=== PATIENT | male | born 1950 | race Caucasian/White ===

== ENCOUNTER 2019-08-29 13:01 | Inpatient (IN) | payer BC, MEDICARE ==
[2019-08-29] MEDS ORDERED: Lidocaine 1% (PF) 30 ML VIAL ONE (13:09)
[2019-08-29] MEDS ORDERED: Heparin 10,000 UNITS/1 ML VIAL ONE (13:09)
[2019-08-29] MEDS ORDERED: Nitroglycerin 2% Ointment 1 INCH/1 GM Packet ONE (13:10)
[2019-08-29 13:34] LABS: #Eosinphils 0.1 thou/uL (0.0-0.7); #Lymphocytes 1.1 thou/uL (1.20-3.40); #Monocytes 0.4 thou/uL (0.11-0.59); %Basophils 0.2 % (0.0-1.0); %Lymphocytes 24.8 % (21.0-51.0); %Monocytes 7.6 % (0.0-10.0); %Neutrophils 64.3 % (42.0-75.0); Hemoglobin 15.4 g/dL (14.0-18.0); Mean Corpuscular HGB CONC 34.9 g/dL (32.0-36.0); Mean Corpuscular Hemoglobin 31.1 pg (27.0-31.0); Mean Corpuscular Volume 89.1 fL (78.0-98.0); Mean Platelet Volume 7.3 fL (7.4-10.4); Platelet Count 65 thou/uL (130-400); RBC Distribution Width 12.4 % (11.5-14.5); Red Blood Cell (RBC) Count 4.94 mill/uL (4.70-6.10); White Blood Cell (WBC) Count 4.6 thou/uL (4.8-10.8)
[2019-08-29] MEDS ORDERED: Midazolam HCl 2 mg/2 ml Vial ONE ×2 (13:34→14:13)
[2019-08-29] MEDS ORDERED: Fentanyl 100 MCG/2 ML VIAL ONE ×2 (13:34→14:13)
[2019-08-29 13:36] LABS: INR-International Normal Ratio 1.3; PTT 29.8 SEC (22.9-36.1); Prothrombin Time 16.1 SEC (12.0-14.7)
[2019-08-29 13:41] LABS: Platelet Morphology Comment Appears Decreased; RBC Morphology Normal
[2019-08-29] MEDS ORDERED: Papaverine 60 MG/2 ML VIAL ONE (13:48)
[2019-08-29] MEDS ORDERED: Magnesium 5 GM/10 ML VIAL ONE (13:48)
[2019-08-29] MEDS ORDERED: Sodium Bicarb 50 MEQ/50 ML VIAL ONE (13:48)
[2019-08-29] MEDS ORDERED: Calcium Chloride 1 GM/10 ML Abboject SYRINGE ONE (13:48)
[2019-08-29] MEDS ORDERED: Heparin 30,000 units/30 ml VIAL ONE (13:48)
[2019-08-29] MEDS ORDERED: Cardioplegic Soln 1,000 ML BAG ONE (13:48)
[2019-08-29] MEDS ORDERED: Thrombin 5000 UNITS/5 ML VIAL ONE (13:48)
[2019-08-29] MEDS ORDERED: Heparin 5,000 UNITS/ML VIAL ONE (13:48)
[2019-08-29] MEDS ORDERED: Potassium Chloride 60 MEQ/30 ML VIAL ONE (13:48)
[2019-08-29] MEDS ORDERED: Nitroglycerin 50 MG/250 ML BOT ONE (13:48)
[2019-08-29] MEDS ORDERED: Lidocaine 2% PF 5 ML VIAL ONE (13:48)
[2019-08-29] MEDS ORDERED: Aminocaproic Acid 5 GM/20 ML VIAL ONE (13:48)
[2019-08-29] MEDS ORDERED: Mannitol 12.5 GM/50 ML ONE (13:48)
[2019-08-29] MEDS ORDERED: Protamine Sulfate 250 MG/25 ML VIAL ONE (13:48)
[2019-08-29] MEDS ORDERED: ePHEDrine 50 MG/ML VIAL ONE (13:50)
[2019-08-29] MEDS ORDERED: PHENYLEPHRINE-NS 100 MCG/ML 10 ML SYRINGE ONE ×2 (13:50→16:14)
[2019-08-29] MEDS ORDERED: Succinylcholine Chloride 20 MG/ML 10 ml SYRINGE FS ONE (13:50)
[2019-08-29] MEDS ORDERED: Vecuronium 10 MG VIAL ONE ×2 (13:50→14:13)
[2019-08-29] MEDS ORDERED: PROPOFOL 200 MG/20 ML VIAL ONE (13:50)
[2019-08-29] MEDS ORDERED: Heparin 25,000 units/D5W 500 ML ONE (13:56)
[2019-08-29 13:58] LABS: ALT (SGPT) 38 U/L (8-55); AST (SGOT) 36 U/L (5-34); Albumin 4.4 g/dL (3.4-4.8); Alkaline Phosphatase 83 U/L (40-110); Anion Gap 15 mmol/L (10-20); BUN (Urea Nitrogen) 18 mg/dL (8.4-25.7); Bilirubin, Total 0.6 mg/dL (0.2-1.2); CK (CPK) 45 U/L (30-200); Calc. Creatinine Clearance 0 mL/min (70-130); Calcium 9.1 mg/dL (7.8-10.44); Carbon Dioxide 20 mmol/L (23-31); Chloride 106 mmol/L (98-107); Estimated GFR-MDRD 84; Globulin 2.4 g/dL (2.4-3.5); Glucose 163 mg/dL (83-110); Potassium 4.3 mmol/L (3.5-5.1); Protein, Total 6.8 g/dL (5.8-8.1); Sodium 137 mmol/L (136-145)
[2019-08-29] MEDS ORDERED: Albumin 5% 500 ML ONE (14:00)
[2019-08-29] MEDS ORDERED: Midazolam HCl 5 mg/5 ml Vial ONE (14:13)
[2019-08-29] MEDS ORDERED: Dexmedetomidine 200 MCG/2 ML VIAL ONE (14:13)
[2019-08-29 14:23] LABS: CKMB 3.6 ng/mL (0-6.6)
[2019-08-29] MEDS ORDERED: Heparin 10,000 UNITS/1 ML VIAL 30,000 UNITS in Sodium Chloride 0.9% 1,000 ML FS SCH (14:30)
[2019-08-29 14:53] LABS: Cardiac Risk 8.8 (Less than 4.5)
[2019-08-29] MEDS ORDERED: Bupivacaine HCl 0.5%/Epinephrine 1:200,000/PF 30 ml Vial ONE (16:25)
[2019-08-29] MEDS ORDERED: Dexamethasone 4 mg/ml Vial ONE (16:25)
[2019-08-29] MEDS ORDERED: Bisacodyl 5 MG TAB PO PRN (18:26)
[2019-08-29] MEDS ORDERED: Acetaminophen 325 MG TAB PO PRN (18:26)
[2019-08-29] MEDS ORDERED: Guaifenesin DM 100-10/5 ML UDCUP PO PRN (18:26)
[2019-08-29] MEDS ORDERED: hydrALAZINE 20 MG/ML VIAL SLOW IVP PRN (18:26)
[2019-08-29] MEDS ORDERED: Norepinephrine 8 MG/0.9% NS 250 ML IVPB PRN (18:26)
[2019-08-29] MEDS ORDERED: Fentanyl 100 MCG/2 ML VIAL SLOW IVP PRN ×2 (18:26)
[2019-08-29] MEDS ORDERED: Morphine 2 MG/ML SYRINGE SLOW IVP PRN ×2 (18:26→21:48)
[2019-08-29] MEDS ORDERED: Promethazine HCl 25 MG/ML VIAL IM PRN (18:26)
[2019-08-29] MEDS ORDERED: Mag-Al 1200 mg/1200 mg/30 ML UDCUP PO PRN (18:26)
[2019-08-29] MEDS ORDERED: Bisacodyl 10 MG SUPP PR PRN (18:26)
[2019-08-29] MEDS ORDERED: Ondansetron PF 4 MG/2 ML Vial IVP PRN (18:26)
[2019-08-29] MEDS ORDERED: traMADol HCl 50 MG TAB PO PRN (18:26)
[2019-08-29] MEDS ORDERED: Hetastarch 6% 500 ML 500 ML IVPB PRN (18:26)
[2019-08-29] MEDS ORDERED: Nitroglycerin 50 MG/250 ML BOT 250 ML IVPB PRN (18:26)
[2019-08-29] MEDS ORDERED: DOPamine 400 MG/D5W 250 ML 250 ML ONE (18:27)
[2019-08-29 18:33] LABS: #Eosinphils 0.1 thou/uL (0.0-0.7); #Lymphocytes 0.9 thou/uL (1.20-3.40); #Monocytes 0.5 thou/uL (0.11-0.59); #Neutrophils 6.4 thou/uL (1.40-6.50); %Basophils 0.5 % (0.0-1.0); %Eosinophils 0.8 % (0.0-10.0); %Lymphocytes 11.9 % (21.0-51.0); %Monocytes 6.2 % (0.0-10.0); %Neutrophils 80.7 % (42.0-75.0); Hemoglobin 13.6 g/dL (14.0-18.0); Mean Corpuscular HGB CONC 34.6 g/dL (32.0-36.0); Mean Corpuscular Hemoglobin 31.2 pg (27.0-31.0); Mean Platelet Volume 7.1 fL (7.4-10.4); Platelet Count 122 thou/uL (130-400); RBC Distribution Width 12.3 % (11.5-14.5); Red Blood Cell (RBC) Count 4.36 mill/uL (4.70-6.10)
--- NOTE | 2019-08-29 18:34 | RAD ---
EXAM: Single view of the chest HISTORY: Status post open heart surgery COMPARISON: None FINDINGS: Single view of the chest shows a normal sized cardiomediastinal silhouette. The patient is status post sternotomy. There is an endotracheal tube at the upper border of the clavicles. A left subclavian central venous catheter seen with its tip in the superior vena cava. No pneumothorax is se en. There is no evidence of consolidation, mass, or pleural effusion. The bones are unremarkable. IMPRESSION: No evidence of acute cardiopulmonary disease
[2019-08-29 18:38] LABS: INR-International Normal Ratio 1.4; PTT 35.6 SEC (22.9-36.1); Prothrombin Time 17.1 SEC (12.0-14.7)
[2019-08-29 18:56] LABS: Anion Gap 14 mmol/L (10-20); BUN (Urea Nitrogen) 14 mg/dL (8.4-25.7); Calc. Creatinine Clearance 113 mL/min (70-130); Calcium 7.3 mg/dL (7.8-10.44); Carbon Dioxide 18 mmol/L (23-31); Chloride 110 mmol/L (98-107); Estimated GFR-MDRD Greater than 90; Glucose 204 mg/dL (83-110); Potassium 4.6 mmol/L (3.5-5.1); Sodium 137 mmol/L (136-145)
[2019-08-29] MEDS ORDERED: Dextrose 50% Abboject 50 ML SYRINGE SLOW IVP PRN (19:04)
[2019-08-29] MEDS ORDERED: Insulin Regular 300 UNITS/3 ML VIAL SC PRN (19:04)
[2019-08-29] MEDS ORDERED: HUMULIN R 100 UNITS in Sodium Chloride 0.9% 100 ML IVPB SCH (19:04)
[2019-08-29] MEDS ORDERED: Dextrose 5% in Water 1,000 ML IV PRN (19:04)
[2019-08-29] MEDS: D5 1/2 NS w/20 mEq KCL 1,000 ML IV SCH ×2 (19:06→19:22)
[2019-08-29] MEDS: Ketorolac Tromethamine 30 MG/ML VIAL IVP SCH (20:01)
[2019-08-29] MEDS ORDERED: Iopamidol 370 76% 50 ML VIAL FS ONE (20:20)
[2019-08-29] MEDS ORDERED: Iopamidol 370 76% 100 ML VIAL ONE (20:20)
--- NOTE | 2019-08-29 20:50 | HP ---
HISTORY OF PRESENT ILLNESS: Tanner Tompkins is a 69-year-old white male, who denies any previous cardiac problems. Today, he had his first episode of chest discomfort, which was in the lower sternal/epigastric area, which was intense pressure. He denied any shortness of breath, nausea, vomiting, or diaphoresis. Ultimately, his called paramedics. Initial EKG showed a [address]-segment elevation in lead III, 1 mm in lead F. There are Q waves in III and F. There are also reciprocal changes in 1L and V3. He was given 4 chewable aspirins and on transfer here, his pain improved and currently just as Q waves inferiorly and the ST segments have appeared to return to normal and all of the reciprocal changes have resolved. PAST MEDICAL HISTORY: He denies any history of hypertension, diabetes, or hypercholesterolemia. MEDICATIONS: Flomax 0.4 daily. ALLERGIES: NONE. PAST SURGICAL HISTORY: Left ptowx-[id number]-wbxw amputation. When he was a child, his foot got caught in a screw auger. He has had right clavicular surgery and a partial splenectomy. SOCIAL HISTORY: He stopped smoking in his teenage years. Rarely drinks. FAMILY HISTORY: Negative for coronary artery disease. REVIEW OF SYSTEMS: Unremarkable. PHYSICAL EXAMINATION: VITAL SIGNS: Blood pressure 120/80, pulse of 90. HEENT: PERRL. Bilateral ear creases. CHEST: Clear. CARDIAC: S1 and S2 normal without any S3, S4, or murmurs. Carotid upstrokes normal without bruits. ABDOMEN: Normal bowel sounds without tenderness or organomegaly. EXTREMITIES: Reveal no clubbing, cyanosis, or edema. NEUROLOGIC: Grossly intact. SKIN: Warm and dry. LABORATORY DATA: EKG findings as noted above. Hemoglobin 15.4, hematocrit 44.1 , white count 4600, platelets 65,000. Sodium 137, potassium 4.3, chloride 106, carbon dioxide 20, BUN 18, creatinine 0.89, AST 36, ALT 38. I do not see a troponin I back as of yet. IMPRESSION: 1. Inferior ST elevation myocardial infarction, but with previous Q waves inferiorly. His ST-segment elevation and reciprocal changes have resolved. 2. Prostatic hypertrophy. 3. Distant smoker. 4. Partial splenectomy. 5. Thrombocytopenia, question related to splenic problems. 6. Left lnlwp-hle-ysof amputation from accident as a child. PLAN: Situation discussed with the patient. It is recommended he undergo cardiac catheterization. Risks were discussed including , myocardial infarction, dye reaction, vascular injury, CVA, transfusion, renal loss, limb loss, etc. Risks of stent placement discussed including , myocardial infarction, emergent CABG, restenosis, stent thrombosis, vessel perforation, etc. He has no upcoming surgeries and has never had gastrointestinal bleeding and a drug-eluting stent will be placed if needed. Job ID: [id number] MTDD
--- NOTE | 2019-08-29 21:06 | CON ---
DATE OF CONSULTATION: HISTORY OF PRESENT ILLNESS: Mr. Tompkins was brought into the emergency department today by EMS. He began having chest pain, arm pain, shortness of breath, and a feeling of impending doom. He was brought in and found to have had a troponin of 0.03. EKG showed normal sinus rhythm with no ST-segment abnormalities. He was seen by Dr. Payne and taken to the laboratory supervisor. He was found to have critical left main stenosis with thrombus. His LAD has multifocal disease throughout its length. There is no bypassable target in the LAD or diagonal system. The circumflex arteries have multifocal disease throughout. There are 2 bypassable OMs. His right coronary is completely occluded. There is a right target that . Currently, the patient is in the recovery area surrounded by family. The family says that he has Alzheimer's that has been worsening, but they wish for everything to be done for him. He is status post left BKA and ambulates some with a prosthetic limb. He has had declining activity levels recently. Ejection fraction on ventriculogram is 70% plus. PAST MEDICAL HISTORY: 1. Alzheimer disease. 2. Peripheral vascular disease, status post left below-knee amputation. 3. History of TIA-the patient had carotid ultrasounds performed when this happened and has, according to the , 47% right carotid stenosis. PAST SURGICAL HISTORY: 1. Left BKA. 2. Colon resection. 3. Laparotomy for small bowel resection secondary to adhesions. CURRENT MEDICATIONS: Noted. ALLERGIES: NONE. SOCIAL HISTORY: He does not use tobacco. REVIEW OF SYSTEMS: Not performed due to the acuity of situation. PHYSICAL EXAMINATION: VITAL SIGNS: His heart rate is 70, regular. Blood pressure is 140/72. LUNGS: Clear bilaterally. HEART: Rhythm is regular. ABDOMEN: Soft and nontender. EXTREMITIES: He has a below-knee amputation on the left. His right lower extremity has no edema. ASSESSMENT AND PLAN: This is an unfortunate situation. He really does not have good bypassable targets anywhere. He does not have a bypassable LAD or diagonal target. His circumflex and right coronary arteries may have some targets there. I discussed the severity of the situation with the family and they wish for everything to be done. The positive aspect of this situation is that his ventricle continues to function at a high level. We will be taking him acutely for coronary artery bypass grafting. The patient's family has been counseled. Job ID: [id number]
[2019-08-29] MEDS ORDERED: Lorazepam 2 MG/ML VIAL SLOW IVP PRN (21:48)
[2019-08-29] MEDS ORDERED: fentaNYL Citrate/PF 2,000 MCG in Sodium Chloride 0.9% 60 ML IV SCH (21:48)
[2019-08-29] MEDS ORDERED: Propofol BOLUS 1,000 MG/100 ML VIAL IV PRN (21:48)
[2019-08-29] MEDS ORDERED: DISCONTINUE PREVIOUS NARCOTIC PAIN MEDICATIONS AND BENZODIAZEPINES FS SCH (21:48)
[2019-08-29] MEDS ORDERED: Propofol 1,000 MG/100 ML VIAL IV PRN (21:48)
[2019-08-29] MEDS ORDERED: Fentanyl BOLUS 250 ML IVPB PRN (21:48)
[2019-08-29] MEDS ORDERED: Norepinephrine 8 MG in Dextrose 5% in Water 242 ML IVPB PRN (22:15)
[2019-08-29] MEDS: Famotidine/PF 20 mg/2ml Vial SLOW IVP SCH (22:25)
[2019-08-29] MEDS: CEFAZOLIN 2 GM in Premix Bag 1 BAG IVPB SCH (22:25)
[2019-08-29 23:47] LABS: Hemoglobin 14.9 g/dL (14.0-18.0)
[2019-08-30 00:06] LABS: Potassium 4.2 mmol/L (3.5-5.1)
[2019-08-30 00:29] LABS: Actual Bicarbonate (HCO3a) 19.6 mEq/L (22-28); Base Excess (BEa) -7.5 mEq/L (-2.0 to +3.0); CO2 Tension 45.3 mmHg (35.0-45.0); Calcium, Ionized 1.08 mmol/L (1.12-1.30); Carboxyhemoglobin (COHb) 0.9 gm% (0.0-3.0); Hemoglobin (Hb) 15.1 g/dL (14.0-18.0); Potassium - ABG Lab 4.46 mmol/L (3.70-5.30); pH, Arterial 7.25 (7.35-7.45)
[2019-08-30 00:30] LABS: ALV-art Gradient 503.075 (0-20); Puncture Site ALINE
--- NOTE | 2019-08-30 00:30 | OP ---
DATE OF PROCEDURE: 08/29/2019 PREOPERATIVE DIAGNOSIS: Coronary artery disease/myocardial infarction/hypertension/Alzheimer disease. POSTOPERATIVE DIAGNOSIS: Coronary artery disease/myocardial infarction/hypertension/Alzheimer disease. PROCEDURE PERFORMED: Emergency coronary artery bypass grafting x3 1. Reverse saphenous vein to diffusely diseased heavily calcified OM1. 2. Reverse saphenous vein to diffusely disease heavily calcified OM2. 3. Reverse saphenous vein to diffusely diseased heavily calcified posterolateral branch. Note, none of these targets should be redone. He has no bypassable anterior targets. CO-SURGEON: Basil Terrell MD ANESTHESIA: General endotracheal- Dr. Jose Alberto Martinez and Dr. Tiago Alejandro. PUMP TIME: 62 minutes. CROSS-CLAMP TIME: 34 minutes. LOW CORE TEMPERATURE: 34 degrees Celsius. COMPOSITE ENGINEER: Steve Roberto. DRAINS: 24-Frisian chest tubes x2. DRIPS: None. TRANSFUSIONS: None. DESCRIPTION OF PROCEDURE: After consent was obtained, the patient was brought to the operating room, placed in supine position on the operating table. Appropriate central line was placed and general endotracheal anesthesia was induced. Chest and legs were prepped and draped in usual sterile fashion. The greater saphenous vein was harvested from the right lower extremity utilizing an endoscopic technique. Wound was irrigated and closed in layers. A median sternotomy was performed. Thymic fat and pericardium were divided with electrocautery. Pericardial stay sutures were placed. The patient was systemically heparinized. Aortic and atrial cannulations were performed. After adequate heparinization, retrograde problem was performed. The patient was placed on cardiopulmonary bypass. Distal targets were marked. Aortic cross-clamp was applied and antegrade sanguineous cardioplegic arrest was obtained. 1 L of antegrade cold [place] cardioplegia was given. Topical cold solution was used. Reverse saphenous vein was anastomosed to the posterolateral branch in an end-to side fashion with running 7-0 Prolene suture. This was a less than 1 mm vessel and poor in quality. The anastomosis was tested and was hemostatic. Reverse saphenous vein was anastomosed to the OM2 in an end-to-side fashion with running 7-0 Prolene suture. This was an approximately 1.5 mm vessel and poor in quality. Anastomosis was tested and was hemostatic. Reverse saphenous vein was anastomosed to the OM1 in an end-to-side fashion with running 7-0 Prolene suture. This was an approximately 1.5 mm vessel and poor in quality. Anastomosis was tested and was hemostatic. Cross-clamp was removed and partial occluding clamp placed. Saphenous veins to OM2 and posterolateral branch were anastomosed to the aortic punch sites. Partial occluding clamp was removed and graft was deaired. Saphenous vein of the OM1 was anastomosed to the side wall of the OM2 graft. Anastomoses were inspected for hemostasis, which was good. The patient was warmed and weaned from cardiopulmonary bypass. After resumption of sinus rhythm, good hemodynamics, temperature greater than 36.5, bypass was discontinued. Transfusions were given. Protamine was administered. Decannulation was performed and pursestring suture secured. A 24-Frisian chest tubes x2 were placed in the mediastinum. After adequate hemostasis had been obtained, sternum was treated with vancomycin paste and closed with #7 wire. Sternum was treated with platelet-rich plasma and the wire was twisted. Wounds were irrigated and treated with platelet-poor plasma, closed in multiple layers. Needle, sponge, and instrument counts were all reported as correct at the end of the procedure. The patient tolerated the procedure well, was transferred to the intensive care unit in stable, but critical condition. Job ID: [id number]
[2019-08-30] MEDS: Ketorolac Tromethamine 30 MG/ML VIAL IVP SCH ×4 (02:05→19:56)
[2019-08-30 04:17] LABS: #Lymphocytes 0.5 thou/uL (1.20-3.40); #Monocytes 0.8 thou/uL (0.11-0.59); #Neutrophils 10.3 thou/uL (1.40-6.50); %Basophils 0.1 % (0.0-1.0); %Eosinophils 0.2 % (0.0-10.0); %Lymphocytes 4.5 % (21.0-51.0); %Monocytes 6.9 % (0.0-10.0); %Neutrophils 88.3 % (42.0-75.0); Hemoglobin 13.6 g/dL (14.0-18.0); Mean Corpuscular HGB CONC 34.5 g/dL (32.0-36.0); Mean Corpuscular Hemoglobin 30.9 pg (27.0-31.0); Mean Corpuscular Volume 89.5 fL (78.0-98.0); Mean Platelet Volume 6.9 fL (7.4-10.4); Platelet Count 176 thou/uL (130-400); RBC Distribution Width 12.5 % (11.5-14.5); White Blood Cell (WBC) Count 11.7 thou/uL (4.8-10.8)
[2019-08-30 04:36] LABS: Anion Gap 13 mmol/L (10-20); BUN (Urea Nitrogen) 14 mg/dL (8.4-25.7); Calc. Creatinine Clearance 116 mL/min (70-130); Calcium 7.9 mg/dL (7.8-10.44); Carbon Dioxide 20 mmol/L (23-31); Chloride 111 mmol/L (98-107); Estimated GFR-MDRD Greater than 90; Glucose 119 mg/dL (83-110); Potassium 3.8 mmol/L (3.5-5.1); Sodium 140 mmol/L (136-145)
[2019-08-30] MEDS: CEFAZOLIN 2 GM in Premix Bag 1 BAG IVPB SCH ×2 (05:33→13:25)
[2019-08-30] MEDS: Potassium Chloride 20 MEQ/100 ML PREMIX BAG IVPB PRN (05:34)
[2019-08-30 07:17] LABS: Actual Bicarbonate (HCO3a) 17.9 mEq/L (22-28); Base Excess (BEa) -6.1 mEq/L (-2.0 to +3.0); CO2 Tension 30.8 mmHg (35.0-45.0); Calcium, Ionized 1.12 mmol/L (1.12-1.30); Hemoglobin (Hb) 13.4 g/dL (14.0-18.0); O2 Tension (PaO2) 91.7 mmHg (> 70.0); Potassium - ABG Lab 4.34 mmol/L (3.70-5.30); pH, Arterial 7.38 (7.35-7.45)
[2019-08-30 07:26] LABS: Puncture Site ALINE
[2019-08-30] MEDS ORDERED: Fentanyl 100 MCG/2 ML VIAL SLOW IVP PRN ×2 (08:01)
[2019-08-30] MEDS ORDERED: FLU VACC TS2019-20(65YR UP)/PF 180 MCG/0.5 ML SYRINGE IM ONE (09:00)
--- NOTE | 2019-08-30 09:54 | CON ---
DATE OF CONSULTATION: HISTORY OF PRESENT ILLNESS: A 69-year-old gentleman who is status post coronary artery bypass grafting. He was just extubated this morning. He was admitted yesterday with ongoing chest pain, epigastric, shortness of breath, nausea, vomiting, and diaphoresis. EKG showed ST-segment elevation in inferior leads. He was given apparently aspirin. He was taken to the labor economics teacher, was found to have coronary artery disease, underwent bypass surgery last night. Postop, he was just extubated, doing well. He is a former smoker of 2 packs a day. His son is at the bedside. He says he has history of dementia. PREVIOUS SURGERIES: Recent CABG, previous left knee amputation, right clavicular surgery, and partial spleen removed. HOME MEDICATIONS: 1. Zoloft 100. 2. Seroquel 100. 3. . ALLERGIES: NONE. SOCIAL HISTORY AND FAMILY HISTORY: Unremarkable. Did construction work, sandblasting. PHYSICAL EXAMINATION: GENERAL: Awake, alert, and responsive, in no distress. VITAL SIGNS: Post extubation, sats 96% on room air, blood pressure . CHEST: No wheezing or crackles. CARDIAC: Normal S1, S2. No gallops. ABDOMEN: No masses. IMAGING STUDIES: X-ray shows no acute infiltrates. LABORATORY DATA: His lab otherwise shows his chemistry profile was normal. IMPRESSION: Status post emergency bypass surgery, former smoker, and dementia. PLAN: We will follow while in the ICU. Supportive care. PT. Job ID: [id number]
[2019-08-30] MEDS: Aspirin 325 MG TAB PO SCH (10:17)
[2019-08-30] MEDS: Famotidine/PF 20 mg/2ml Vial SLOW IVP SCH (10:18)
--- NOTE | 2019-08-30 10:38 | RAD ---
PORTABLE SUPINE CHEST: HISTORY: Postop sternotomy. CCU followup. COMPARISON: 08/29/2019. FINDINGS: ET tube remains in place. Central line unchanged. Postop sternotomy changes. Lungs appear well aerated and clear. No focal infiltrate or significant effusion. IMPRESSION: No acute lung process. POS: [facility]
[2019-08-30 15:04] LABS: Troponin I 5.075 ng/mL (< 0.028)
[2019-08-30] MEDS: D5 1/2 NS w/20 mEq KCL 1,000 ML IV SCH (20:02)
[2019-08-30] MEDS: Atorvastatin Calcium 40 MG TAB PO SCH (20:57)
[2019-08-30] MEDS: Famotidine 20 MG TAB PO SCH (20:57)
[2019-08-31] MEDS: Ketorolac Tromethamine 30 MG/ML VIAL IVP SCH ×4 (02:05→20:05)
[2019-08-31 04:16] LABS: #Lymphocytes 0.7 thou/uL (1.20-3.40); #Monocytes 0.6 thou/uL (0.11-0.59); #Neutrophils 6.8 thou/uL (1.40-6.50); %Eosinophils 0.2 % (0.0-10.0); %Lymphocytes 8.4 % (21.0-51.0); %Monocytes 7.7 % (0.0-10.0); %Neutrophils 83.7 % (42.0-75.0); Hemoglobin 11.7 g/dL (14.0-18.0); Mean Corpuscular HGB CONC 34.5 g/dL (32.0-36.0); Mean Corpuscular Hemoglobin 31.5 pg (27.0-31.0); Mean Corpuscular Volume 91.1 fL (78.0-98.0); Mean Platelet Volume 6.9 fL (7.4-10.4); Platelet Count 123 thou/uL (130-400); RBC Distribution Width 12.8 % (11.5-14.5); Red Blood Cell (RBC) Count 3.71 mill/uL (4.70-6.10); White Blood Cell (WBC) Count 8.2 thou/uL (4.8-10.8)
[2019-08-31 04:34] LABS: Anion Gap 10 mmol/L (10-20); BUN (Urea Nitrogen) 13 mg/dL (8.4-25.7); Calc. Creatinine Clearance 122 mL/min (70-130); Carbon Dioxide 23 mmol/L (23-31); Chloride 105 mmol/L (98-107); Estimated GFR-MDRD Greater than 90; Glucose 177 mg/dL (83-110); Sodium 134 mmol/L (136-145)
[2019-08-31] MEDS: Potassium Chloride 20 MEQ/100 ML PREMIX BAG IVPB PRN (06:01)
[2019-08-31] MEDS: Aspirin 325 MG TAB PO SCH (07:39)
[2019-08-31] MEDS: Famotidine 20 MG TAB PO SCH ×2 (07:40→20:04)
--- NOTE | 2019-08-31 09:42 | PRG ---
DATE OF SERVICE: 08/31/2019 SUBJECTIVE: This morning, he is awake, alert, and responsive. He is clearly demented. Denies any shortness of breath. OBJECTIVE: VITAL SIGNS: Sats are 96% on room air, temperature 98, blood pressure 95/64, and respiratory rate 18. CHEST: No wheezing or crackles. CARDIAC: Normal S1 and S2. No gallops. ABDOMEN: No masses. IMPRESSION: Status post emergency coronary artery bypass graft, carotid disease, dementia. X-ray shows no acute infiltrates. DISPOSITION: As per Cardiology. Transferred out to a monitored bed. Job ID: [id number]
--- NOTE | 2019-08-31 10:42 | RAD ---
PORTABLE CHEST: HISTORY: Postop sternotomy. COMPARISON: 08/30/2019. FINDINGS: Postop sternotomy change with mild cardiomegaly. The lung sifuentes appear aerated and clear of infiltr ate. Central line appears adequately positioned. ET tube has been removed. IMPRESSION: No acute interval change. POS: [facility]
[2019-08-31] MEDS: Atorvastatin Calcium 40 MG TAB PO SCH (20:04)
[2019-08-31] MEDS ORDERED: Amiodarone 150 MG, Admixture Fee 1 EACH in Dextrose 5% in Water 100 ML IVPB SCH (22:30)
[2019-08-31] MEDS: Amiodarone 450 MG, Admixture Fee 1 EACH in Dextrose 5% in Water 250 ML IVPB SCH (22:50)
[2019-09-01] MEDS: Ketorolac Tromethamine 30 MG/ML VIAL IVP SCH ×4 (01:28→20:16)
[2019-09-01 05:28] LABS: #Eosinphils 0.1 thou/uL (0.0-0.7); #Monocytes 0.5 thou/uL (0.11-0.59); %Eosinophils 1.3 % (0.0-10.0); %Lymphocytes 12.9 % (21.0-51.0); %Monocytes 6.3 % (0.0-10.0); %Neutrophils 79.5 % (42.0-75.0); Hemoglobin 11.4 g/dL (14.0-18.0); Mean Corpuscular HGB CONC 34.9 g/dL (32.0-36.0); Mean Corpuscular Hemoglobin 31.8 pg (27.0-31.0); Mean Corpuscular Volume 91.1 fL (78.0-98.0); Mean Platelet Volume 6.9 fL (7.4-10.4); Platelet Count 130 thou/uL (130-400); RBC Distribution Width 12.4 % (11.5-14.5); Red Blood Cell (RBC) Count 3.58 mill/uL (4.70-6.10); White Blood Cell (WBC) Count 7.5 thou/uL (4.8-10.8)
[2019-09-01 05:46] LABS: Anion Gap 10 mmol/L (10-20); BUN (Urea Nitrogen) 14 mg/dL (8.4-25.7); Calc. Creatinine Clearance 128 mL/min (70-130); Calcium 8.4 mg/dL (7.8-10.44); Carbon Dioxide 24 mmol/L (23-31); Chloride 103 mmol/L (98-107); Estimated GFR-MDRD Greater than 90; Glucose 161 mg/dL (83-110); Potassium 3.7 mmol/L (3.5-5.1); Sodium 133 mmol/L (136-145)
[2019-09-01] MEDS: Amiodarone 450 MG, Admixture Fee 1 EACH in Dextrose 5% in Water 250 ML IVPB SCH ×2 (05:57→22:04)
--- NOTE | 2019-09-01 09:25 | PRG ---
DATE OF SERVICE: 09/01/2019 SUBJECTIVE: This morning, he is awake, alert, and responsive. He is better post-CABG. OBJECTIVE: VITAL SIGNS: Blood pressure respirations 18. CHEST: Decreased breath sounds. No wheezing. CARDIAC: Normal S1 and S2. No gallops. ABDOMEN: No masses. ASSESSMENT AND PLAN: Coronary artery bypass grafting, dementia. The patient can be transferred out of the ICU later on today. Continue PT, supportive care. Job ID: [id number]
[2019-09-01] MEDS: Aspirin 325 MG TAB PO SCH (09:37)
[2019-09-01] MEDS: Famotidine 20 MG TAB PO SCH ×2 (09:37→20:18)
[2019-09-01] MEDS ORDERED: Mag-Al 1200 mg/1200 mg/30 ML UDCUP PO PRN (11:24)
[2019-09-01] MEDS ORDERED: Artificial Tears 18 DROP/0.9 ML EA EYE PRN (11:24)
[2019-09-01] MEDS ORDERED: Bisacodyl 10 MG SUPP PR PRN (11:24)
[2019-09-01] MEDS ORDERED: Mineral Oil ENEMA PR PRN (11:24)
[2019-09-01] MEDS ORDERED: Nitroglycerin 0.4 MG TAB (25 Tab Bottle) SL PRN (11:24)
[2019-09-01] MEDS ORDERED: Zolpidem Tartrate 5 MG TAB PO PRN (11:24)
[2019-09-01] MEDS ORDERED: Bisacodyl 5 MG TAB PO PRN (11:24)
[2019-09-01] MEDS ORDERED: Milk Of Magnesia 30 ML UDCUP PO PRN (11:24)
[2019-09-01] MEDS ORDERED: Guaifenesin DM 100-10/5 ML UDCUP PO PRN (11:24)
[2019-09-01 14:03] LABS: Actual Bicarbonate (HCO3a) 21.5 mEq/L (22-28); Analyzer IN Cardio OR; Base Excess (BEa) -4.8 mEq/L (-2.0 to +3.0); CO2 Tension 44.4 mmHg (35.0-45.0); Calcium, Ionized 1.09 mmol/L (1.12-1.30); Carboxyhemoglobin (COHb) 0.6 gm% (0.0-3.0); O2 Tension (PaO2) 65.8 mmHg (> 70.0); Potassium - ABG Lab 5.13 mmol/L (3.70-5.30)
[2019-09-01 14:03] LABS: Analyzer IN Cardio OR; Calcium, Ionized 1.12 mmol/L (1.12-1.30); Carboxyhemoglobin (COHb) 0.1 gm% (0.0-3.0); Hemoglobin (Hb) 11.4 g/dL (14.0-18.0); O2 Tension (PaO2) 67.3 mmHg (> 70.0); pH, Arterial 7.27 (7.35-7.45)
[2019-09-01 14:04] LABS: Actual Bicarbonate (HCO3v) 19 mEq/L (22-28); Analyzer IN Cardio OR; Base Excess -8.1 mEq/L (-2.0 to +3.0); Calcium, Ionized 1.01 mmol/L (1.16-1.32); Chloride (ABG LAB) 104 mmol/L (98-106); Hemoglobin (Hb) 10.7 g/dL (12.6-17.4); Potassium - ABG Lab 5.18 mmol/L (3.70-5.30); Sodium 135.9 mmol/L (133-146)
[2019-09-01 14:04] LABS: Actual Bicarbonate (HCO3a) 24.4 mEq/L (22-28); Analyzer IN Cardio OR; Base Excess (BEa) -2.1 mEq/L (-2.0 to +3.0); CO2 Tension 49.2 mmHg (35.0-45.0); Carboxyhemoglobin (COHb) 0.3 gm% (0.0-3.0); Hemoglobin (Hb) 10.9 g/dL (14.0-18.0); O2 Tension (PaO2) 422.7 mmHg (> 70.0); Potassium - ABG Lab 5.85 mmol/L (3.70-5.30); pH, Arterial 7.31 (7.35-7.45)
[2019-09-01 14:05] LABS: Actual Bicarbonate (HCO3a) 21.4 mEq/L (22-28); Analyzer IN Cardio OR; Base Excess (BEa) -6.1 mEq/L (-2.0 to +3.0); CO2 Tension 51.7 mmHg (35.0-45.0); Carboxyhemoglobin (COHb) 0.3 gm% (0.0-3.0); O2 Tension (PaO2) 454.4 mmHg (> 70.0); Potassium - ABG Lab 5.33 mmol/L (3.70-5.30)
[2019-09-01 14:06] LABS: Actual Bicarbonate (HCO3a) 20.2 mEq/L (22-28); Analyzer IN Cardio OR; Base Excess (BEa) -7.7 mEq/L (-2.0 to +3.0); CO2 Tension 50.6 mmHg (35.0-45.0); Calcium, Ionized 1.04 mmol/L (1.12-1.30); Carboxyhemoglobin (COHb) 0.4 gm% (0.0-3.0); Hemoglobin (Hb) 13.4 g/dL (14.0-18.0); Potassium - ABG Lab 4.64 mmol/L (3.70-5.30)
[2019-09-01 14:06] LABS: Actual Bicarbonate (HCO3a) 12.8 mEq/L (22-28); Analyzer IN Cardio OR; Base Excess (BEa) -14.1 mEq/L (-2.0 to +3.0); CO2 Tension 33.7 mmHg (35.0-45.0); Calcium, Ionized 0.54 mmol/L (1.12-1.30); Carboxyhemoglobin (COHb) 0.3 gm% (0.0-3.0); Hemoglobin (Hb) 9.6 g/dL (14.0-18.0); O2 Tension (PaO2) 234.3 mmHg (> 70.0); Potassium - ABG Lab 2.77 mmol/L (3.70-5.30)
[2019-09-01 14:07] LABS: Actual Bicarbonate (HCO3a) 20.8 mEq/L (22-28); Analyzer IN Cardio OR; Base Excess (BEa) -5.1 mEq/L (-2.0 to +3.0); CO2 Tension 41.9 mmHg (35.0-45.0); Calcium, Ionized 1.15 mmol/L (1.12-1.30); Carboxyhemoglobin (COHb) 0.8 gm% (0.0-3.0); Hemoglobin (Hb) 14.7 g/dL (14.0-18.0); O2 Tension (PaO2) 124.1 mmHg (> 70.0); Potassium - ABG Lab 4.41 mmol/L (3.70-5.30); pH, Arterial 7.31 (7.35-7.45)
[2019-09-01 14:10] LABS: Puncture Site ALINE
[2019-09-01 14:11] LABS: Puncture Site ALINE
[2019-09-01 14:12] LABS: Puncture Site ALINE; pH, Arterial 7.22 (7.35-7.45)
[2019-09-01 14:13] LABS: Puncture Site ALINE; pH, Arterial 7.24 (7.35-7.45)
[2019-09-01 14:25] LABS: pH (venous) 7.23 (7.32-7.43)
[2019-09-01 14:26] LABS: Puncture Site ALINE
[2019-09-01 14:30] LABS: Puncture Site ALINE
[2019-09-01 14:31] LABS: Puncture Site ALINE
[2019-09-01] MEDS: Amiodarone 200 MG TAB PO SCH (20:17)
[2019-09-01] MEDS: Atorvastatin Calcium 40 MG TAB PO SCH (20:18)
--- NOTE | 2019-09-01 23:13 | EKG ---
Test Reason : POST CABG Blood Pressure : / mmHG Vent. Rate : 070 BPM Atrial Rate : 070 BPM P-R Int : 180 ms QRS Dur : 090 ms QT Int : 430 ms P-R-T Axes : 027 026 070 degrees QTc Int : 464 ms Normal sinus rhythm Possible Inferior infarct , age undetermined Abnormal ECG No previous ECGs available Confirmed by ERIC RICHARDS M.D. ([id number] on 09/01/2019 11:13:18 PM Referred By: Tha HOOK Confirmed By:ERIC RICHARDS M.D.
[2019-09-02] MEDS: Ketorolac Tromethamine 30 MG/ML VIAL IVP SCH ×4 (01:22→22:20)
[2019-09-02] MEDS: Aspirin 325 mg Enteric Coated Tablet PO SCH (10:46)
[2019-09-02] MEDS: Amiodarone 200 MG TAB PO SCH ×2 (10:46→21:07)
[2019-09-02] MEDS: Famotidine 20 MG TAB PO SCH ×2 (10:47→21:07)
[2019-09-02] MEDS: Atorvastatin Calcium 40 MG TAB PO SCH (21:07)
[2019-09-03] MEDS: Ketorolac Tromethamine 30 MG/ML VIAL IVP SCH ×3 (05:17→17:31)
[2019-09-03] MEDS: Carvedilol 3.125 MG TAB PO SCH ×2 (07:59→17:32)
[2019-09-03] MEDS: Famotidine 20 MG TAB PO SCH ×2 (09:28→21:42)
[2019-09-03] MEDS: Aspirin 325 mg Enteric Coated Tablet PO SCH (09:28)
[2019-09-03] MEDS: Amiodarone 200 MG TAB PO SCH ×2 (09:28→21:42)
[2019-09-03] MEDS: Atorvastatin Calcium 40 MG TAB PO SCH (21:42)
[2019-09-04] MEDS: diphenhydrAMINE 25 MG CAP PO PRN ×2 (00:46→20:30)
[2019-09-04] MEDS: Aspirin 325 mg Enteric Coated Tablet PO SCH (08:39)
[2019-09-04] MEDS: Carvedilol 3.125 MG TAB PO SCH ×2 (08:39→16:20)
[2019-09-04] MEDS: Famotidine 20 MG TAB PO SCH ×2 (08:40→20:30)
[2019-09-04] MEDS: Amiodarone 200 MG TAB PO SCH ×2 (08:41→20:31)
[2019-09-04] MEDS: Atorvastatin Calcium 40 MG TAB PO SCH (20:30)
[2019-09-05] MEDS: Carvedilol 3.125 MG TAB PO SCH ×2 (08:19→16:03)
[2019-09-05] MEDS: Amiodarone 200 MG TAB PO SCH ×2 (09:41→20:48)
[2019-09-05] MEDS: Aspirin 325 mg Enteric Coated Tablet PO SCH (09:41)
[2019-09-05] MEDS: Famotidine 20 MG TAB PO SCH ×2 (09:42→20:49)
--- NOTE | 2019-09-05 09:48 | EKG ---
Test Reason : AFIB RVR Blood Pressure : / mmHG Vent. Rate : 123 BPM Atrial Rate : 138 BPM P-R Int : 000 ms QRS Dur : 090 ms QT Int : 298 ms P-R-T Axes : 000 082 138 degrees QTc Int : 426 ms Atrial fibrillation with rapid ventricular response Inferior infarct (cited on or before 29-AUG-2019) Cannot rule out Anterior infarct , new ACUTE PA / STEMI Consider right ventricular involvement in acute inferior infarct Abnormal ECG Confirmed by YOSEF JANE MD ([id number]) on 09/05/2019 9:48:16 AM Referred By: Ever QUINTANA Confirmed By:YOSEF JANE MD
[2019-09-05] MEDS: Atorvastatin Calcium 40 MG TAB PO SCH (20:48)
[2019-09-05] MEDS: diphenhydrAMINE 25 MG CAP PO PRN (20:48)
[2019-09-06] MEDS: Carvedilol 3.125 MG TAB PO SCH ×2 (08:09→16:39)
[2019-09-06] MEDS: Amiodarone 200 MG TAB PO SCH ×2 (08:09→21:08)
[2019-09-06] MEDS: Aspirin 325 mg Enteric Coated Tablet PO SCH (08:09)
[2019-09-06] MEDS: Famotidine 20 MG TAB PO SCH ×2 (08:09→21:08)
--- NOTE | 2019-09-06 15:14 | PDOC.CPN ---
- Subjective Date: 09/06/19 Time: 15:18 Interval history: The pt seen and examined. No overnight events. No cardiac complaints. Per the pt, the pt still need some assess by PT while he was exercising with PT yesterday - Objective Allergies/Adverse Reactions: Allergies Allergy/AdvReac Type Severity Reaction Status Date / Time No Known Allergies Allergy Unverified 08/29/19 14:21 Visit Medications: Current Medications Acetaminophen (Tylenol) 650 mg PO Q6H PRN PRN Reason: Headache/Fever Or Mild Pain Last Admin: 09/05/19 16:02 Dose: 650 mg Al Hydroxide/Mg Hydroxide (Maalox) 30 ml PO Q4H PRN PRN Reason: Indigestion Albuterol/Ipratropium (Duoneb) 3 ml NEB Q6H PRN PRN Reason: SHORTNESS OF BREATH Amiodarone HCl (Cordarone) 400 mg PO BID [facility] Last Admin: 09/06/19 08:09 Dose: 400 mg Artificial Tears (Tears Naturale) 0 drop EA EYE PRN PRN PRN Reason: Dry Eyes Aspirin (Ecotrin) 325 mg PO DAILY [facility] Last Admin: 09/06/19 08:09 Dose: 325 mg Atorvastatin Calcium (Lipitor) 40 mg PO HS [facility] Last Admin: 09/05/19 20:48 Dose: 40 mg Bisacodyl (Dulcolax) 10 mg PO Q12H PRN PRN Reason: Constipation Bisacodyl (Dulcolax) 10 mg NJ Q12H PRN PRN Reason: Constipation Carvedilol (Coreg) 3.125 mg PO BID-[facility] Last Admin: 09/06/19 08:09 Dose: 3.125 mg Diphenhydramine HCl (Benadryl) 25 mg PO Q6H PRN PRN Reason: Itching & Insomnia or Ismael Mayur Last Admin: 09/05/19 20:48 Dose: 25 mg Famotidine (Pepcid) 20 mg PO BID [facility] Last Admin: 09/06/19 08:09 Dose: 20 mg Fentanyl (Sublimaze) 25 mcg SLOW IVP Q2H PRN PRN Reason: Moderate Pain (4-7) Last Admin: 08/30/19 10:20 Dose: 25 mcg Fentanyl (Sublimaze) 50 mcg SLOW IVP Q2H PRN PRN Reason: Severe Pain (8-10) Guaifenesin/Dextromethorphan (Robitussin Dm) 15 ml PO Q4H PRN PRN Reason: Cough Guaifenesin/Dextromethorphan (Robitussin Dm) 15 ml PO Q4H PRN PRN Reason: Cough Hydralazine HCl (Apresoline) 10 mg SLOW IVP Q6H PRN PRN Reason: To Maintain SBP< 140mmHG Lorazepam (Ativan) 2 mg SLOW IVP Q1H PRN PRN Reason: Breakthrough agitation Stop: 09/28/19 21:48 Magnesium Hydroxide (Milk Of Magnesium) 30 ml PO Q12H PRN PRN Reason: Constipation Memantine (Namenda) 10 mg PO BID [facility] Last Admin: 09/06/19 08:09 Dose: 10 mg Mineral Oil (Fleet Mineral Oil) 133 ml NJ DAILYPRN PRN PRN Reason: Constipation Nitroglycerin (Nitrostat) 0.4 mg SL Q5MIN PRN PRN Reason: Chest Pain Ondansetron HCl (Zofran) 4 mg IVP Q6H PRN PRN Reason: Nausea/Vomiting Last Admin: 09/04/19 09:34 Dose: 4 mg Potassium Chloride (Kcl) 20 meq IVPB PRN PRN PRN Reason: K level </= 4.0 Last Admin: 08/31/19 06:01 Dose: 20 meq Promethazine HCl (Phenergan) 6.25 mg IM Q4H PRN PRN Reason: Nausea/Vomiting Quetiapine Fumarate (Seroquel) 100 mg PO BID [facility] Last Admin: 09/06/19 08:09 Dose: 100 mg Sertraline HCl (Zoloft) 100 mg PO DAILY [facility] Last Admin: 09/06/19 08:09 Dose: 100 mg Sodium Chloride (Flush - Normal Saline) 10 ml IVF PRN PRN PRN Reason: Saline Flush Last Admin: 09/03/19 21:43 Dose: 10 ml Zolpidem Tartrate (Ambien) 5 mg PO HSPRN PRN PRN Reason: Insomnia Vital Signs & Weight: Vital Signs Temp Pulse Pulse Pulse Resp BP BP 09/06/19 14:47 74 70 128/76 94/58 L 09/06/19 11:24 98.1 F 71 16 09/06/19 08:00 98.2 F 76 18 09/06/19 04:00 97.5 F L 72 18 BP Pulse Ox Pulse Ox Pulse Ox 09/06/19 14:47 96 92 L 09/06/19 11:24 108/69 93 L 09/06/19 08:00 117/57 L 95 09/06/19 04:00 120/71 94 L Weight 217 lb 3.2 oz - Physical Exam General: alert & oriented x3 Cardiac: regular rate and rhythm, S1/S2 Lungs: clear to auscultation, decreased breath sounds Skin: clear Musculoskeletal: decreased range of motion - Labs Result Diagrams: 09/01/19 05:15 09/01/19 05:15 Troponin/CKMB CK-MB (CK-2) 3.6 ng/mL (0-6.6) 08/29/19 13:08 Troponin I 5.075 ng/mL (< 0.028) H* 08/30/19 03:15 - Telemetry Sinus rhythms and dysrhythmias: sinus rhythm - Assessment/Plan Assessment/Plan: 1. CAD with s/p CABG x 3 on 08/29/2019 - stable with Coreg 3.125mg BID, ASA and statin 2. Post-op Afib - remains in SR with Amiodarone 400mg BID since 09/01/2019; on ASA 325mg qd 3. hx of TIA 4. Alzheimer's disease 5. hx of Lt BKA 6. Colon resection 7. pertial splenectomy MAR reviewed Pt. seen and eval. by me.I agree with the A/P by the TIP INSERTER. Chest clear. RRR. Doing well postop. gjm
[2019-09-06] MEDS: Atorvastatin Calcium 40 MG TAB PO SCH (21:07)
[2019-09-07] MEDS: Amiodarone 200 MG TAB PO SCH ×2 (09:10→20:25)
[2019-09-07] MEDS: Aspirin 325 mg Enteric Coated Tablet PO SCH (09:10)
[2019-09-07] MEDS: Carvedilol 3.125 MG TAB PO SCH ×2 (09:10→16:42)
[2019-09-07] MEDS: Famotidine 20 MG TAB PO SCH ×2 (09:11→20:25)
--- NOTE | 2019-09-07 15:44 | PDOC.CPN ---
- Subjective Date: 09/07/19 Time: 15:45 Interval history: The pt seen and examined. No overnight events. No cardiac complaints - Objective Allergies/Adverse Reactions: Allergies Allergy/AdvReac Type Severity Reaction Status Date / Time No Known Allergies Allergy Unverified 08/29/19 14:21 Visit Medications: Current Medications Acetaminophen (Tylenol) 650 mg PO Q6H PRN PRN Reason: Headache/Fever Or Mild Pain Last Admin: 09/05/19 16:02 Dose: 650 mg Al Hydroxide/Mg Hydroxide (Maalox) 30 ml PO Q4H PRN PRN Reason: Indigestion Albuterol/Ipratropium (Duoneb) 3 ml NEB Q6H PRN PRN Reason: SHORTNESS OF BREATH Amiodarone HCl (Cordarone) 400 mg PO BID [facility] Last Admin: 09/07/19 09:10 Dose: 400 mg Artificial Tears (Tears Naturale) 0 drop EA EYE PRN PRN PRN Reason: Dry Eyes Aspirin (Ecotrin) 325 mg PO DAILY [facility] Last Admin: 09/07/19 09:10 Dose: 325 mg Atorvastatin Calcium (Lipitor) [address] [facility] Last Admin: 09/06/19 21:07 Dose: 40 mg Bisacodyl (Dulcolax) 10 mg PO Q12H PRN PRN Reason: Constipation Bisacodyl (Dulcolax) 10 mg HI Q12H PRN PRN Reason: Constipation Carvedilol (Coreg) 3.125 mg PO BID-[facility] Last Admin: 09/07/19 09:10 Dose: 3.125 mg Diphenhydramine HCl (Benadryl) 25 mg PO Q6H PRN PRN Reason: Itching & Insomnia or Ismael Mayur Last Admin: 09/05/19 20:48 Dose: 25 mg Famotidine (Pepcid) 20 mg PO BID [facility] Last Admin: 09/07/19 09:11 Dose: 20 mg Fentanyl (Sublimaze) 25 mcg SLOW IVP Q2H PRN PRN Reason: Moderate Pain (4-7) Last Admin: 08/30/19 10:20 Dose: 25 mcg Fentanyl (Sublimaze) 50 mcg SLOW IVP Q2H PRN PRN Reason: Severe Pain (8-10) Guaifenesin/Dextromethorphan (Robitussin Dm) 15 ml PO Q4H PRN PRN Reason: Cough Guaifenesin/Dextromethorphan (Robitussin Dm) 15 ml PO Q4H PRN PRN Reason: Cough Hydralazine HCl (Apresoline) 10 mg SLOW IVP Q6H PRN PRN Reason: To Maintain SBP< 140mmHG Lorazepam (Ativan) 2 mg SLOW IVP Q1H PRN PRN Reason: Breakthrough agitation Stop: 09/28/19 21:48 Magnesium Hydroxide (Milk Of Magnesium) 30 ml PO Q12H PRN PRN Reason: Constipation Memantine (Namenda) 10 mg PO BID [facility] Last Admin: 09/07/19 09:10 Dose: 10 mg Mineral Oil (Fleet Mineral Oil) 133 ml [place] DAILYPRN PRN PRN Reason: Constipation Nitroglycerin (Nitrostat) 0.4 mg SL Q5MIN PRN PRN Reason: Chest Pain Ondansetron HCl (Zofran) 4 mg IVP Q6H PRN PRN Reason: Nausea/Vomiting Last Admin: 09/04/19 09:34 Dose: 4 mg Potassium Chloride (Kcl) 20 meq IVPB PRN PRN PRN Reason: K level </= 4.0 Last Admin: 08/31/19 06:01 Dose: 20 meq Promethazine HCl (Phenergan) 6.25 mg IM Q4H PRN PRN Reason: Nausea/Vomiting Quetiapine Fumarate (Seroquel) 100 mg PO BID [facility] Last Admin: 09/07/19 09:10 Dose: 100 mg Sertraline HCl (Zoloft) 100 mg PO DAILY [facility] Last Admin: 09/07/19 09:11 Dose: 100 mg Sodium Chloride (Flush - Normal Saline) 10 ml IVF PRN PRN PRN Reason: Saline Flush Last Admin: 09/03/19 21:43 Dose: 10 ml Zolpidem Tartrate (Ambien) 5 mg PO HSPRN PRN PRN Reason: Insomnia Vital Signs & Weight: Vital Signs Temp Pulse Pulse Pulse Resp BP BP 09/07/19 14:15 70 67 120/58 L 103/66 09/07/19 12:00 96.1 F L 73 16 09/07/19 11:52 79 78 134/65 122/69 09/07/19 07:55 98.4 F 73 16 09/07/19 04:00 97.8 F 77 14 BP BP Pulse Ox Pulse Ox Pulse Ox 09/07/19 14:15 97 93 L 09/07/19 12:00 109/56 L 94 L 09/07/19 11:52 98 94 L 09/07/19 07:55 140/86 97 09/07/19 04:00 144/68 H 97 Weight 218 lb 2 oz - Physical Exam General: alert & oriented x3 HEENT: mucus membranes moist Neck: supple neck Cardiac: regular rate and rhythm, S1/S2 Lungs: clear to auscultation Neuro: cranial nerve 2-12 intact Musculoskeletal: normal range of motion - Labs Result Diagrams: 09/01/19 05:15 09/01/19 05:15 Troponin/CKMB CK-MB (CK-2) 3.6 ng/mL (0-6.6) 08/29/19 13:08 Troponin I 5.075 ng/mL (< 0.028) H* 08/30/19 03:15 - Assessment/Plan Assessment/Plan: 1. CAD with s/p CABG x 3 on 08/29/2019 - stable with Coreg 3.125mg BID, ASA and statin 2. Post-op Afib - remains in SR with Amiodarone 400mg BID since 09/01/2019; on ASA 325mg qd 3. hx of TIA 4. Alzheimer's disease 5. hx of Lt BKA 6. Colon resection 7. pertial splenectomy MAR reviewed * Dr Payne's pt * Waiting for replacement
[2019-09-07] MEDS: Atorvastatin Calcium 40 MG TAB PO SCH (20:25)
[2019-09-08] MEDS: Aspirin 325 mg Enteric Coated Tablet PO SCH (09:28)
[2019-09-08] MEDS: Amiodarone 200 MG TAB PO SCH ×2 (09:28→20:54)
[2019-09-08] MEDS: Famotidine 20 MG TAB PO SCH ×2 (09:28→20:55)
[2019-09-08] MEDS: Carvedilol 3.125 MG TAB PO SCH ×2 (09:28→18:13)
[2019-09-08] MEDS: Atorvastatin Calcium 40 MG TAB PO SCH (20:55)
[2019-09-09 04:37] VITALS: TEMP 97.7
[2019-09-09] MEDS: Aspirin 325 mg Enteric Coated Tablet PO SCH (08:01)
[2019-09-09] MEDS: Amiodarone 200 MG TAB PO SCH (08:01)
[2019-09-09] MEDS: Carvedilol 3.125 MG TAB PO SCH (08:02)
[2019-09-09] MEDS: Famotidine 20 MG TAB PO SCH (08:02)
[2019-09-09 13:34] VITALS: BP 118/59
[2019-09-09 13:44] VITALS: BMI 30.4
--- NOTE | 2019-09-10 03:22 | DIS ---
DATE OF ADMISSION: 08/29/2019 DATE OF DISCHARGE: 09/09/2019 DIAGNOSES: 1. Coronary artery disease, status post ST-elevation myocardial infarction with acute decompensation. 2. Hypertension. 3. Dyslipidemia. 4. Alzheimer disease. 5. Peripheral vascular disease, status post left below-knee amputation. PROCEDURES: 1. Cardiac catheterization. 2. Emergency coronary artery bypass grafting x3-saphenous vein grafts to OM1, OM2, and posterolateral branch. DESCRIPTION OF HOSPITAL STAY: Mr. Tompkins was brought in after suffering an acute episode of chest pain at home. He underwent emergency cardiac catheterization and subsequent emergency coronary artery bypass grafting. Postoperatively, he has had a brief bout of atrial fibrillation, which was controlled with amiodarone. The remainder of his hospital stay, he has been recovering from surgery. Everyone involved in his medical care thought he would benefit from inpatient rehab, but his insurance has denied. Therefore, he is being sent home. He will have outpatient cardiac rehab. At the time of discharge, he is ambulatory, tolerating a regular diet, having good bowel and bladder function. Incisions are clean and dry without evidence of infection. DISCHARGE MEDICATIONS: Include; 1. Aspirin 325 mg daily. 2. Lipitor 40 mg at bedtime. 3. Coreg 3.125 mg b.i.d. 4. Amiodarone per Dr. Payne's schedule. 5. Zoloft 100 mg daily. 6. Quetiapine 100 mg b.i.d. 7. Ranitidine 10 mg b.i.d. FOLLOWUP: Follow up is with me in [address] Payne in a month. Job ID: [id number]
== END 2019-09-09 16:30 | disposition home or self-care (01) | DRG 234 ==
LOC: ERS 13:01 → 2NO 13:29 → CCU 13:56 → 2NO 09-01 12:31
PROVIDERS: ADMIT Internal Medicine Cardiovascular Disease; ATTEND Internal Medicine Cardiovascular Disease
PROC: 021209W Bypass Coronary Artery, Three Arteries from Aorta with Autologous Venous Tissue, Open Approach (ICD-10-PCS; principal; 2019-08-29)
PROC: 4A023N7 Measurement of Cardiac Sampling and Pressure, Left Heart, Percutaneous Approach (ICD-10-PCS; 2019-08-29)
PROC: 06BP4ZZ Excision of Right Saphenous Vein, Percutaneous Endoscopic Approach (ICD-10-PCS; 2019-08-29)
PROC: 5A1221Z Performance of Cardiac Output, Continuous (ICD-10-PCS; 2019-08-29)
PROC: B2111ZZ Fluoroscopy of Multiple Coronary Arteries using Low Osmolar Contrast (ICD-10-PCS; 2019-08-29)
PROC: 3E02340 Introduction of Influenza Vaccine into Muscle, Percutaneous Approach (ICD-10-PCS; 2019-09-02)
DX: I21.19 ST elevation (STEMI) myocardial infarction involving other coronary artery of inferior wall (principal); I25.10 Atherosclerotic heart disease of native coronary artery without angina pectoris; N40.0 Benign prostatic hyperplasia without lower urinary tract symptoms; D69.6 Thrombocytopenia, unspecified; G30.9 Alzheimer's disease, unspecified; F02.80 Dementia in other diseases classified elsewhere, unspecified severity, without behavioral disturbance, psychotic disturbance, mood disturbance, and anxiety; I48.91 Unspecified atrial fibrillation; Z23 Encounter for immunization; Z79.899 Other long term (current) drug therapy; Z90.81 Acquired absence of spleen; Z89.512 Acquired absence of left leg below knee; Z86.73 Personal history of transient ischemic attack (TIA), and cerebral infarction without residual deficits; Z90.49 Acquired absence of other specified parts of digestive tract; Z87.891 Personal history of nicotine dependence
CPT/HCPCS: 36415; 36416; 36430; 71045; 80048; 80053; 80061; 82550; 82553; 82805; 83036; 84484; 85025; 85347; 85610; 85730; 86850; 86900; 86901; 90471; 90662; 93005; 93010; 93458; 93798; 94002; 94003; 99152; C1769; G0008; J0282; J0670; J0690; J1100; J1265; J1644; J1815; J1885; J2001; J2150; J2250; J2405; J2440; J2550; J2704; J2720; J3010; J3370; J3475; J3480; J3490; J7050; J7070; P9045; Q0163; Q9967; S0017; S0028

== ENCOUNTER 2020-09-08 18:26 | Inpatient (IN) | payer MEDICARE, OTHER ==
[~2020-09-08 18:26] MED LIST: Amiodarone 150 MG/3 ML VIAL ONE; Atropine Sulfate 1 mg/10 ml Syringe ONE; Calcium Chloride 1 GM/10 ML Abboject SYRINGE ONE; EPINEPHrine 1 MG/10 ML Abboject SYRINGE ONE; Iopamidol-370 76% 500 ML 1 ML ONE; Lidocaine 2% PF 100 mg/5 ml Syringe ONE; Sodium Bicarb 50 MEQ/50 ML Abboject 8.4% SYRINGE ONE
[2020-09-08 19:08] LABS: #Eosinphils 0.2 thou/uL (0.0-0.7); #Lymphocytes 1.3 thou/uL (1.20-3.40); #Monocytes 0.4 thou/uL (0.11-0.59); #Neutrophils 4.4 thou/uL (1.40-6.50); %Basophils 0.6 % (0.0-1.0); %Eosinophils 2.8 % (0.0-10.0); %Lymphocytes 20.1 % (21.0-51.0); %Neutrophils 70.5 % (42.0-75.0); Hemoglobin 13.8 g/dL (14.0-18.0); Mean Corpuscular HGB CONC 33.3 g/dL (32.0-36.0); Mean Corpuscular Hemoglobin 32.2 pg (27.0-31.0); Mean Corpuscular Volume 96.4 fL (78.0-98.0); Mean Platelet Volume 7.5 fL (7.4-10.4); Platelet Count 155 thou/uL (130-400); RBC Distribution Width 12.6 % (11.5-14.5); Red Blood Cell (RBC) Count 4.28 mill/uL (4.70-6.10); White Blood Cell (WBC) Count 6.3 thou/uL (4.8-10.8)
[2020-09-08 19:32] LABS: ALT (SGPT) 28 U/L (8-55); AST (SGOT) 26 U/L (5-34); Albumin 3.9 g/dL (3.4-4.8); Alkaline Phosphatase 87 U/L (40-110); Anion Gap 14 mmol/L (10-20); BUN (Urea Nitrogen) 20 mg/dL (8.4-25.7); Bilirubin, Total 1.3 mg/dL (0.2-1.2); CK (CPK) 43 U/L (30-200); Calc. Creatinine Clearance 0 mL/min (70-130); Calcium 8.8 mg/dL (7.8-10.44); Carbon Dioxide 20 mmol/L (23-31); Chloride 107 mmol/L (98-107); Estimated GFR-MDRD 83; Globulin 2.7 g/dL (2.4-3.5); Glucose 117 mg/dL (83-110); Lipase 17 U/L (8-78); Potassium 4.5 mmol/L (3.5-5.1); Protein, Total 6.6 g/dL (5.8-8.1); Sodium 136 mmol/L (136-145)
[2020-09-08] MEDS ORDERED: Aspirin Chewable 81 MG TAB ONE (19:39)
[2020-09-08] MEDS ORDERED: Furosemide 40 MG/4 ML VIAL ONE (19:39)
[2020-09-08] MEDS ORDERED: Dexamethasone 10 MG/ML VIAL ONE (19:39)
[2020-09-08 19:53] LABS: CKMB 2.1 ng/mL (0-6.6)
--- NOTE | 2020-09-08 20:18 | RAD ---
PORTABLE CHEST: 09/08/20 HISTORY: Shortness of breath and wheezing. COMPARISON: 08/31/19. FINDINGS: Mild cardiomegaly with postop sternotomy change. Vascularity is upper normal. Increased interstitial markings are seen bilaterally. Hazy infiltrate in the right lung base. No significant effusion. IMPRESSION: Evidence of hazy interstitial and ground glass type infiltrates in the right lower lung and left mid lung. POS: AGW
--- NOTE | 2020-09-08 21:59 | CT ---
CTA CHEST WITH CONTRAST 09/08/20 Axial tomograms obtained following angio protocol with multiplanar reconstructions and 3D postprocess ing. INDICATIONS: Wheezing, shortness of breath. Elevated D-dimer. FINDINGS: Pulmonary arteries show adequate enhancement. No evidence of pulmonary embolus. Thoracic aorta is not adequately opacified for assessing aortic dissection Nonspecific mediastinal and hilar lymph nodes. Review of lung sifuentes show moderate sized bilateral pl eural effusions. There is cardiomegaly with mild vascular congestion. Bibasilar atelectasis. Hazy rene und glass opacities diffuse suggesting mild interstitial edema. Images through the upper abdomen show small gallstones in the neck of the gallbladder. Osseous struct ures unremarkable. IMPRESSION: 1. No evidence of pulmonary embolus. 2. Moderate bilateral effusions. Vascular and interstitial congestion with evidence of interstit ial edema. 3. Nonspecific mediastinal and hilar adenopathy. 4. Cholelithiasis. POS: KAMARI
[2020-09-08 22:20] LABS: Troponin I 0.115 ng/mL (< 0.028)
[2020-09-08] MEDS ORDERED: Guaifenesin DM 100-10/5 ML UDCUP PO PRN (22:29)
[2020-09-08] MEDS ORDERED: Acetaminophen 650 MG Suppository PR PRN (22:29)
[2020-09-08] MEDS ORDERED: HYDROcodone/Acetaminophen 5/325 mg Tablet PO PRN ×2 (22:29)
[2020-09-08] MEDS ORDERED: Ondansetron PF 4 MG/2 ML Vial IVP PRN (22:29)
[2020-09-08] MEDS ORDERED: Acetaminophen 325 MG TAB PO PRN (22:29)
[2020-09-08] MEDS ORDERED: Ondansetron ODT 4 MG TAB PO PRN (22:29)
--- NOTE | 2020-09-08 22:49 | PDOC.HHP ---
Hospitalist HPI - History of Present Illness sob History of Present Illness: Case of an 70y/o male with pmhx of cad, htn, hld, colon ca, Alzheimer who comes to hospital due to sob. patient states he was on his usal state of health until 1 week ago when he started with progressive dyspnea. patient stats dyspnea initially was only at exertion but later started to worsen. patient complains of orhtopnea, states initially he could control symptoms by laying to his side or sitting up but not any longer for which he decided to come to hospital for evaluation. of note patient refers he has been unable to void properly for the last 2 days despite having the urge to go to the bathroom. patient denies any chest pain palpitation or diaphoresis. at the ed patient was found to be on dchf and with decreased o2 saturation for which bipap was started and hospitalist was called for further evaluation and management. 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 as child cabg - Family History Family History: reports: no pertinent history - Social History Smoking Status: Former smoker Alcohol: reports: None Drugs: reports: none Living Situation: With Family - Exam General Appearance: NAD, awake alert Eye: PERRL, anicteric sclera ENT: normocephalic atraumatic, no oropharyngeal lesions Neck: supple, symmetric Heart: RRR, no murmur, no gallops Respiratory: no wheezes, no ronchi, rales, tachypneic Gastrointestinal: soft, non-tender, non-distended Extremities: no cyanosis, no clubbing, 1+ LE edema Skin: normal turgor, no lesions, no rashes Neurological: cranial nerve grossly intact, normal sensation to touch, no weakness Musculoskeletal: normal tone, normal strength, no muscle wasting Psychiatric: normal affect, normal behavior, A&O x 3 Hospitalist Results - Labs Result Diagrams: 09/08/20 18:57 09/08/20 18:57 Lab results: WBC 6.3 thou/uL (4.8-10.8) 09/08/20 18:57 Hgb 13.8 g/dL (14.0-18.0) L 09/08/20 18:57 Hct 41.3 % (42.0-52.0) L 09/08/20 18:57 MCV 96.4 fL (78.0-98.0) 09/08/20 18:57 Plt Count 155 thou/uL (130-400) 09/08/20 18:57 Neutrophils % 70.5 % (42.0-75.0) 09/08/20 18:57 Sodium 136 mmol/L (136-145) 09/08/20 18:57 Potassium 4.5 mmol/L (3.5-5.1) 09/08/20 18:57 Chloride 107 mmol/L (98-107) 09/08/20 18:57 Carbon Dioxide 20 mmol/L (23-31) L 09/08/20 18:57 BUN 20 mg/dL (8.4-25.7) 09/08/20 18:57 Creatinine 0.90 mg/dL (0.7-1.3) 09/08/20 18:57 Glucose 117 mg/dL (83-110) H 09/08/20 18:57 Calcium 8.8 mg/dL (7.8-10.44) 09/08/20 18:57 Total Bilirubin 1.3 mg/dL (0.2-1.2) H 09/08/20 18:57 AST 26 U/L (5-34) 09/08/20 18:57 ALT 28 U/L (8-55) 09/08/20 18:57 Alkaline Phosphatase 87 U/L (40-110) 09/08/20 18:57 Creatine Kinase 43 U/L (30-200) 09/08/20 18:57 CK-MB (CK-2) 2.1 ng/mL (0-6.6) 09/08/20 18:57 Troponin I 0.115 ng/mL (< 0.028) H 09/08/20 21:47 B-Natriuretic Peptide 1194.6 pg/mL (0-100) H 09/08/20 18:57 Serum Total Protein 6.6 g/dL (5.8-8.1) 09/08/20 18:57 Albumin 3.9 g/dL (3.4-4.8) 09/08/20 18:57 Lipase 17 U/L (8-78) 09/08/20 18:57 Hospitalist H&P A/P - Problem (1) Decompensated heart failure Code(s): I50.9 - HEART FAILURE, UNSPECIFIED Status: Acute (2) Respiratory failure with hypoxia Code(s): J96.91 - RESPIRATORY FAILURE, UNSPECIFIED WITH HYPOXIA Status: Acute (3) CAD (coronary artery disease) Code(s): I25.10 - ATHSCL HEART DISEASE OF [place] CORONARY ARTERY W/O ANG PCTRS Status: Acute (4) HLD (hyperlipidemia) Code(s): E78.5 - HYPERLIPIDEMIA, UNSPECIFIED Status: Acute (5) Alzheimer disease Code(s): G30.9 - ALZHEIMER'S DISEASE, UNSPECIFIED; F02.80 - DEMENTIA IN OTH DISEASES CLASSD ELSWHR W/O BEHAVRL DISTURB Status: Acute (6) Elevated troponin Code(s): R77.8 - OTHER SPECIFIED ABNORMALITIES OF PLASMA PROTEINS Status: Acute - Plan Plan: 70 y/o male with the stated pmhx who present with d chf decompensated chf - cta consistent with vascular congestion + pleural effusion - elevated bnp - will continue with beta peyman - lasix 20mg iv q 12 lasix naive - patient seems to have a bph component, will place desai and start flomax - consider acei when more stable, will hold for now due to agressive diuretic treatment - 2decho - consult cardiology respiratory failure - on bipap, wean as tolerated - likely secondary to above - transitional nurse consulted elevated troponin - elevated troponin, likely secondary to deman ischemia, will trend cad/htn/hld/alzheeimer - continue home meds
[2020-09-08 23:39] LABS: Troponin I 0.113 ng/mL (< 0.028)
[2020-09-09 01:42] LABS: Troponin I 0.092 ng/mL (< 0.028)
[2020-09-09] MEDS ORDERED: Furosemide 20 MG/2 ML VIAL ONE (05:51)
[2020-09-09] MEDS ORDERED: Furosemide 20 MG/2 ML VIAL SLOW IVP SCH (06:00)
[2020-09-09 06:49] LABS: #Lymphocytes 0.6 thou/uL (1.20-3.40); #Monocytes 0.1 thou/uL (0.11-0.59); #Neutrophils 4.2 thou/uL (1.40-6.50); %Eosinophils 0.1 % (0.0-10.0); %Lymphocytes 12.7 % (21.0-51.0); %Monocytes 1.6 % (0.0-10.0); %Neutrophils 85.6 % (42.0-75.0); Mean Corpuscular HGB CONC 34.6 g/dL (32.0-36.0); Mean Corpuscular Hemoglobin 32.8 pg (27.0-31.0); Mean Corpuscular Volume 94.9 fL (78.0-98.0); Mean Platelet Volume 7.4 fL (7.4-10.4); Platelet Count 185 thou/uL (130-400); RBC Distribution Width 12.7 % (11.5-14.5); Red Blood Cell (RBC) Count 4.25 mill/uL (4.70-6.10)
[2020-09-09 06:54] LABS: ALT (SGPT) 27 U/L (8-55); AST (SGOT) 26 U/L (5-34); Albumin 4.2 g/dL (3.4-4.8); Alkaline Phosphatase 92 U/L (40-110); Anion Gap 16 mmol/L (10-20); BUN (Urea Nitrogen) 20 mg/dL (8.4-25.7); Bilirubin, Total 1.2 mg/dL (0.2-1.2); Calc. Creatinine Clearance 0 mL/min (70-130); Calcium 9.3 mg/dL (7.8-10.44); Carbon Dioxide 21 mmol/L (23-31); Chloride 106 mmol/L (98-107); Estimated GFR-MDRD 71; Glucose 182 mg/dL (83-110); Magnesium 2.3 mg/dL (1.6-2.6); Potassium 4.4 mmol/L (3.5-5.1); Protein, Total 7.2 g/dL (5.8-8.1); Sodium 139 mmol/L (136-145)
[2020-09-09] MEDS ORDERED: Enoxaparin Sodium 40 MG/0.4 ML SYRINGE ONE (08:05)
[2020-09-09] MEDS ORDERED: Aspirin 325 MG TAB ONE (08:05)
[2020-09-09] MEDS ORDERED: Aspirin 325 MG TAB PO SCH (09:00)
[2020-09-09] MEDS ORDERED: Tamsulosin HCl 0.4 MG CAP PO SCH (09:00)
[2020-09-09] MEDS ORDERED: Carvedilol 3.125 MG TAB PO SCH (09:00)
[2020-09-09] MEDS ORDERED: Enoxaparin Sodium 40 MG/0.4 ML SYRINGE SC SCH (09:00)
[2020-09-09] MEDS ORDERED: EPINEPHrine 1 MG/ML AMP ONE (12:17)
[2020-09-09] MEDS ORDERED: Magnesium 2 GM/50 ML BAG (IN WATER) ONE (12:36)
[2020-09-09] MEDS ORDERED: Esmolol 2,500 MG/250 ML 0 ML ONE (12:37)
[2020-09-09 13:01] LABS: SARS-CoV-2 MS2 Positive; SARS-CoV-2 N Gene Negative; SARS-CoV-2 S Gene Negative; SARS-CoV-2 by NAA Not Detected (NotDetected); SARS-CoV-2 orf1ab Negative
[2020-09-09] MEDS ORDERED: Atorvastatin Calcium 40 MG TAB PO SCH (21:00)
--- NOTE | 2020-09-13 11:01 | DIS ---
DATE OF ADMISSION: 09/08/2020 DATE OF DISCHARGE: 09/09/2020 FINAL DIAGNOSES: 1. Cardiac arrest secondary to ventricular fibrillation. 2. Acute diastolic congestive heart failure exacerbation. 3. Acute hypoxic respiratory failure. 4. Type 2 non-ST elevation myocardial infarction secondary to congestive heart failure exacerbation. 5. Coronary artery disease, status post three vessel coronary artery bypass grafting. 6. Alzheimer's dementia. CONSULTATIONS: Blanca Tobin M.D. with Cardiology Service. PERTINENT LABORATORY AND X-RAY FINDINGS: Troponin I ranged between 0.090 to 0.115. BNP 1195, TSH 0.65, magnesium level 2.3. CBC showed a hemoglobin ranging between 13.8 to 14.0. D-dimer 0.65. CT angiogram of the chest dated 09/08/2020, showed no evidence for pulmonary embolus, moderate bilateral pleural effusions, vascular prominence with interstitial congestion and interstitial edema. Portable chest x-ray dated 09/08/2020 showed bilateral infiltrates consistent with pulmonary edema. HOSPITAL COURSE: The patient was initially admitted after presenting with acute hypoxic respiratory failure and dyspnea in the context of congestive heart failure exacerbation with bilateral pleural effusions noted on CT imaging of the chest. The patient initially was managed after being placed on BiPAP noninvasive mechanical ventilation and given IV Lasix in addition to aspirin 324 mg and Decadron 10 mg IV push. The patient also received bronchodilator therapy with DuoNeb and albuterol. The patient was stabilized in the emergency room with BiPAP noninvasive mechanical ventilation and eventually transitioned off this modality when O2 saturations maintained in the mid 90% range on 2 L/minute by nasal cannula. According to ER nurses who were monitoring the patient, the patient exhibited moderate distress and was noted on telemetry monitoring with ventricular tachycardia after eating lunch. Code Blue was initiated and ACLS protocol was started, at which point patient received electric shocks and initiation of CPR. The patient received multiple rounds of epinephrine as well as CPR and was intubated in the emergency room. The patient received multiple rounds of vasopressors and epinephrine as well as sodium bicarbonate, magnesium and amiodarone. The patient had recalcitrant ventricular fibrillation with brief return of spontaneous pulse lasting for approximately 30 seconds. The patient underwent aggressive ACLS protocol without return of spontaneous circulation. Bedside echocardiogram showed minimal cardiac activity consistent with ventricular fibrillation, but no evidence of large pericardial effusion. An enlarged right ventricle was noted and CPR was continued. The patient's was notified of the critical nature of her and was en route to the hospital. However, after approximately 35 minutes of ACLS protocol and no meaningful response to aggressive measures. The Code Blue was terminated. The patient at 12:37 p.m. without pulse palpated and no respiratory effort. Decedent affairs were notified and family pending arrival to the emergency room. Job ID: [id number]
== END 2020-09-09 16:19 | disposition expired ==
LOC: ERS 18:26 → ERHOLD 20:37
PROVIDERS: ADMIT Internal Medicine; ATTEND Internal Medicine
PROC: 5A2204Z Restoration of Cardiac Rhythm, Single (ICD-10-PCS; principal; 2020-09-08)
PROC: 5A12012 Performance of Cardiac Output, Single, Manual (ICD-10-PCS; 2020-09-08)
PROC: 5A09357 Assistance with Respiratory Ventilation, Less than 24 Consecutive Hours, Continuous Positive Airway Pressure (ICD-10-PCS; 2020-09-08)
PROC: 0BH17EZ Insertion of Endotracheal Airway into Trachea, Via Natural or Artificial Opening (ICD-10-PCS; 2020-09-09)
PROC: 3E033XZ Introduction of Vasopressor into Peripheral Vein, Percutaneous Approach (ICD-10-PCS; 2020-09-09)
DX: I11.0 Hypertensive heart disease with heart failure (principal); J96.01 Acute respiratory failure with hypoxia; I21.A1 Myocardial infarction type 2; I49.01 Ventricular fibrillation; I50.33 Acute on chronic diastolic (congestive) heart failure; I46.2 Cardiac arrest due to underlying cardiac condition; I25.10 Atherosclerotic heart disease of native coronary artery without angina pectoris; G30.9 Alzheimer's disease, unspecified; F02.80 Dementia in other diseases classified elsewhere, unspecified severity, without behavioral disturbance, psychotic disturbance, mood disturbance, and anxiety; Z20.828 Contact with and (suspected) exposure to other viral communicable diseases; E78.5 Hyperlipidemia, unspecified; E78.00 Pure hypercholesterolemia, unspecified; F41.9 Anxiety disorder, unspecified; F32.9 Major depressive disorder, single episode, unspecified; Z95.1 Presence of aortocoronary bypass graft; Z85.038 Personal history of other malignant neoplasm of large intestine; Z94.9 Transplanted organ and tissue status, unspecified; I25.2 Old myocardial infarction; Z89.512 Acquired absence of left leg below knee; Z87.891 Personal history of nicotine dependence; Z79.899 Other long term (current) drug therapy; Z79.82 Long term (current) use of aspirin
CPT/HCPCS: 31500; 36415; 36416; 71045; 71275; 80053; 82550; 82553; 83690; 83735; 83880; 84443; 84484; 85025; 85379; 87635; 92950; 93005; 94660; 94760; 96374; 96375; J0171; J0282; J0461; J1100; J1650; J1940; J2001; J3475; Q9967; U0003